=== PATIENT | male | born 1985 | race Caucasian/White ===

== ENCOUNTER 2021-07-23 03:54 | Emergency (ER) | payer OTHER, SELFPAY ==
[2021-07-23 04:00] VITALS: BP 147/90; PULSE 85; RESP 14; TEMP 36.7; O2SAT 95; BMI 23.7
--- NOTE | 2021-07-23 06:16 | ED.SKABFB ---
HPI - Skin/Abscess/Foreign Bdy General Chief complaint: Skin/Abscess/Foreign Body Stated complaint: Abscess Time Seen by Provider: 07/23/21 06:16 Source: patient Mode of arrival: ambulatory History of Present Illness HPI narrative: 36-year-old male relapsed and has been injecting cocaine into the dorsal aspect of his right hand, this evening he was ?skin popping? and states that he injected some of the drugs into the wrong area. He states that he wants to avoid infection and requested evaluation. Related Data Allergies Allergy/AdvReac Type Severity Reaction Status Date / Time No Known Allergies Allergy Unverified 12/24/19 19:48 [No Known Allergies*] Review of Systems Review of Systems: Pertinent positives and negatives as stated in HPI 10 point review of systems is otherwise negative. PMFSH Past Medical History Source: nursing notes reviewed Social History Social History Alcohol intake: unknown Patient Tobacco Use Status: Current everyday Tobacco user Use of substances other than those prescribed or required for medical reasons: Yes Substance Use Type: IV Drugs Advance Directives: No Physical Exam Vital Signs: Vital Signs: Last Vital Signs Temp 98.0 F 07/23/21 04:00 Pulse 85 07/23/21 04:00 Resp 14 07/23/21 04:00 BP 147/90 H 07/23/21 04:00 Pulse Ox 95 07/23/21 04:00 BMI result Body Mass Index 23.7 VITAL SIGNS: Reviewed. GENERAL: Well developed, well nourished, in no acute distress. HEAD: Normocephalic/atraumatic EYES: PERRLA, EOMI EARS: Ext canals without abnormality OROPHARYNX: no oral lesions noted, posterior pharynx clear LUNGS: Normal breath sounds. No adventitious sounds or accessory muscle use. SpO2<95> CARDIOVASCULAR: Regular rate and rhythm without noted murmurs ABDOMEN: Soft, non-tender, non-distended with bowel sounds. RIGHT HAND: Small areas ecchymosis with mild edema but no erythema/induration. NEUROLOGIC: Alert and oriented x 4. Course Course Course Narrative: 36-year-old male with history and clinical presentation consistent with combination drug with cocaine injection in to dorsum of right hand with some mild bruising but no evidence of infection/abscesses. Explained to patient the natural history abscess formation and reviewed different techniques to avoid development of these. There is no drainable collection and patient was discharged home in stable condition. Discharge Plan Discharge Clinical Impression: Substance use disorder Patient Disposition: Home, Self-Care Instructions: Polysubstance Abuse (ED) Additional Instructions: Keep your hands clean with soap and water, use the needle exchange program. Return to this ER for any worsening of symptoms.
[2021-07-23 06:20] VITALS: BP 103/76; PULSE 69; RESP 12; O2SAT 100
== END 2021-07-23 06:36 | disposition home or self-care (01) ==
PROVIDERS: Emergency Provider Student in an Organized Health Care Education/Training Program
DX: F14.90 Cocaine use, unspecified, uncomplicated (principal)
CPT/HCPCS: 99282; 99284